=== PATIENT | female | born 1960 | race Caucasian/White ===

== ENCOUNTER → 2019-05-14 14:32 | Outpatient (CLI) | payer BC, SELFPAY ==
--- NOTE | 2019-05-14 14:36 | DI.RAD.S_ITS ---
PROCEDURE: XR HAND LT MIN 3V INDICATIONS: left 1st and 2nd finger pain TECHNIQUE: 3 views of the hand(s) acquired. COMPARISON: None. FINDINGS: Bones: No fractures or dislocations. Carpal bones are normally aligned. No suspicious bony lesions. Mild multilevel joint narrowing with periarticular osteophyte formation. No erosive changes. Soft tissues: No suspicious soft tissue calcifications. IMPRESSION: Mild multilevel joint narrowing with periarticular osteophyte formation, most notably and moderate involving the first CMC joint. Dictated by: Baljinder CHERRY Interpreted: Wu Pires MD on 05/14/2019 at 15:00 Approved by: Wu Pires M.D. on 05/14/2019 at 15:41
== END ==
PROVIDERS: PCP Family Medicine; Visit Provider Family Medicine
DX: M79.642 Pain in left hand (principal); M25.742 Osteophyte, left hand
CPT/HCPCS: 73130

== ENCOUNTER → 2019-08-15 08:35 | Outpatient (CLI) | payer BC, SELFPAY ==
[2019-08-15 09:16] LABS: Creatinine Urine Random 45.6 mg/dL
[2019-08-15 09:20] LABS: Microalbumi Creatinin Ratio Ur 13.1 ug/mg CR (<30); Microalbumin Urine Random 0.6 mg/dL (0-1.6)
[2019-08-15 09:21] LABS: BUN Creatinine Ratio 22.9 (6-22); Blood Urea Nitrogen 16 mg/dL (7-17); Calcium 9.6 mg/dL (8.4-10.2); Carbon Dioxide 27 mmol/L (22-32); Chloride 106 mmol/L (98-107); Cholesterol 243 mg/dL (140-199); Estimated Glomerular Filt Rate > 60.0 mL/min (>60); Glucose 95 mg/dL (80-110); HDL Cholesterol 39 mg/dL (40-60); HEMOLYSIS < 15 (0-50); LDL Cholesterol Calculated 176 mg/dL (<100); Potassium 4.8 mmol/L (3.4-5.1); Sodium 141 mmol/L (137-145); Triglycerides 139 mg/dL (35-150)
== END ==
PROVIDERS: PCP Family Medicine; Visit Provider Family Medicine
DX: R03.0 Elevated blood-pressure reading, without diagnosis of hypertension (principal); Z13.220 Encounter for screening for lipoid disorders
CPT/HCPCS: 36415; 80048; 80061; 82043; 82570

== ENCOUNTER → 2019-08-28 09:22 | Outpatient (CLI) | payer BC, SELFPAY ==
[2019-08-28 09:56] LABS: Influenza A - CEPHEID Flu A POSITIVE (NEGATIVE); Influenza B - CEPHEID Flu B NEGATIVE (NEGATIVE)
== END ==
PROVIDERS: PCP Family Medicine; Visit Provider Nurse Practitioner
DX: R68.89 Other general symptoms and signs (principal)
CPT/HCPCS: 87502

== ENCOUNTER → 2021-04-14 08:58 | Outpatient (CLI) | payer BC, SELFPAY ==
[2021-04-14 09:49] LABS: Add Manual Diff / Slide Review NO; Basophils Absolute Auto 0 /uL (0-100); Basophils Percent Auto 0.5 % (0-2); Eosinophils Absolute Auto 200 /uL (0-450); Eosinophils Percent Auto 2.6 % (2-4); Hematocrit 42.7 % (36-46); Hemoglobin 14.3 g/dL (12.0-16.0); Lymphocytes Absolute Auto 1600 /uL (1100-4500); Mean Corpuscular HGB Conc 33.6 % (30-36); Mean Corpuscular Hemoglobin 30.1 PG (26-34); Mean Corpuscular Volume 89.8 fL (80-100); Monocytes Absolute Auto 500 /uL (0-900); Monocytes Percent Auto 8.2 % (3-14); Neutrophils Absolute Auto 3900 /uL (1500-7000); Neutrophils Percent Auto 62.7 % (50-75); Platelet Count 289 X10^3/uL (150-400); Red Blood Cell Count 4.75 X10^6/uL (4.0-5.2); Red Cell Distribution Width 13.1 % (11.6-14.8); White Blood Cell Count 6.2 X10^3/uL (4.5-11.0)
[2021-04-14 10:04] LABS: Alanine Aminotransferase 45 IU/L (<35); Albumin 4.3 g/dL (3.5-5.0); Albumin Globulin Ratio 1.5 (1.0-2.8); Alkaline Phosphatase 86 U/L (38-126); Aspartate Aminotransferase 30 IU/L (14-36); BUN Creatinine Ratio 26.9 (6-22); Bilirubin Total 0.5 mg/dL (0.2-1.3); Blood Urea Nitrogen 18 mg/dL (7-17); Calcium 9.2 mg/dL (8.4-10.2); Carbon Dioxide 27 mmol/L (22-32); Chloride 109 mmol/L (98-107); Cholesterol 231 mg/dL (140-199); Estimated Glomerular Filt Rate > 60.0 mL/min (>60); Globulin 2.9 g/dL (1.7-4.1); Glucose 107 mg/dL (80-110); HDL Cholesterol 42 mg/dL (40-60); HEMOLYSIS < 15 (0-50); LDL Cholesterol Calculated 166 mg/dL (<100); Potassium 4.3 mmol/L (3.4-5.1); Sodium 142 mmol/L (137-145); Total Protein 7.2 g/dL (6.3-8.2); Triglycerides 115 mg/dL (35-150)
[2021-04-14 10:23] LABS: Creatinine Urine Random 111.7 mg/dL
[2021-04-14 10:26] LABS: Microalbumin Urine Random 2.8 mg/dL (0-1.6)
== END ==
PROVIDERS: PCP Family Medicine; Referring Provider Family Medicine; Visit Provider Family Medicine
DX: Z13.0 Encounter for screening for diseases of the blood and blood-forming organs and certain disorders involving the immune mechanism (principal); Z13.1 Encounter for screening for diabetes mellitus; Z13.220 Encounter for screening for lipoid disorders
CPT/HCPCS: 36415; 80053; 80061; 82043; 82570; 84443; 85025

== ENCOUNTER → 2022-05-11 08:23 | Outpatient (CLI) | payer BC, SELFPAY ==
[2022-05-11 08:49] LABS: Add Manual Diff / Slide Review NO; Basophils Absolute Auto 100 /uL (0-100); Basophils Percent Auto 1.2 % (0-2); Eosinophils Absolute Auto 200 /uL (0-450); Eosinophils Percent Auto 2.9 % (2-4); Hematocrit 41.9 % (36-46); Hemoglobin 14.2 g/dL (12.0-16.0); Lymphocytes Absolute Auto 2200 /uL (1100-4500); Lymphocytes Percent Auto 37.6 % (25-40); Mean Corpuscular HGB Conc 33.8 % (30-36); Mean Corpuscular Hemoglobin 30.2 PG (26-34); Mean Corpuscular Volume 89.4 fL (80-100); Monocytes Absolute Auto 500 /uL (0-900); Monocytes Percent Auto 9.1 % (3-14); Neutrophils Absolute Auto 2900 /uL (1500-7000); Neutrophils Percent Auto 49.2 % (50-75); Platelet Count 277 X10^3/uL (150-400); Red Blood Cell Count 4.69 X10^6/uL (4.0-5.2); Red Cell Distribution Width 13.3 % (11.6-14.8); White Blood Cell Count 5.9 X10^3/uL (4.5-11.0)
[2022-05-11 09:08] LABS: Alanine Aminotransferase 47 IU/L (<35); Albumin 4.1 g/dL (3.5-5.0); Albumin Globulin Ratio 1.5 (1.0-2.8); Alkaline Phosphatase 100 U/L (38-126); Aspartate Aminotransferase 26 IU/L (14-36); Bilirubin Total 0.4 mg/dL (0.2-1.3); Blood Urea Nitrogen 16 mg/dL (7-17); Calcium 8.8 mg/dL (8.4-10.2); Carbon Dioxide 24 mmol/L (22-32); Chloride 108 mmol/L (98-107); Cholesterol 237 mg/dL (140-199); Estimated Glomerular Filt Rate > 60 mL/min (>60); Globulin 2.8 g/dL (1.7-4.1); Glucose 94 mg/dL (80-110); HDL Cholesterol 38 mg/dL (40-60); HEMOLYSIS < 15 (0-50); LDL Cholesterol Calculated 167 mg/dL (<100); Potassium 4.1 mmol/L (3.4-5.1); Sodium 140 mmol/L (137-145); Total Protein 6.9 g/dL (6.3-8.2); Triglycerides 161 mg/dL (35-150)
[2022-05-11 09:37] LABS: TSH w/ Reflex to FT4 0.96 uIU/mL (0.47-4.68)
== END ==
PROVIDERS: PCP Family Medicine; Referring Provider Family Medicine; Visit Provider Family Medicine
DX: R07.9 Chest pain, unspecified (principal)
CPT/HCPCS: 36415; 80053; 80061; 84443; 85025

== ENCOUNTER → 2022-07-06 08:44 | Outpatient (CLI) | payer BC, SELFPAY ==
[2022-07-06 10:08] LABS: COVID19 -Nasal RAPID Negative (Negative)
--- NOTE | 2022-07-07 19:33 | DI.NM.S_ITS ---
DATE OF SERVICE: 07/06/2022 PROCEDURE PERFORMED: Exercise treadmill stress and rest myocardial perfusion imaging with gating to assess ejection fraction and regional wall motion. ORDERING PROVIDER: Dr. Renetta Banerjee. INDICATIONS: The patient is a 61-year-old female with intermittent atypical chest discomfort. CARDIAC STRESS: The patient was able to exercise for 5 minutes, 59 seconds on a standard Dominic protocol, suggesting mildly impaired exercise capacity with anFAI of +7%. She had a normal heart rate response to exercise, achieving a maximum heart rate of 158 BPM (101% of her predicted maximum). She had a moderate hypertensive blood pressure response to exercise with a resting blood pressure of 150/88, increasing to a maximum of 212/85. She had no chest discomfort or other anginal symptoms. Her resting ECG appears normal with normal sinus rhythm. She developed subtle, upsloping ST depression that is nonspecific and essentially resolves in early recovery. She had rare PVCs, rarely in couplets, but no other complex ventricular ectopy. At 4 minutes, 5 seconds of exercise at a heart rate of 144 BPM, 25.9 millicuries of technetium-99m Myoview was injected and she was imaged 20 minutes later using a gated SPECT acquisition protocol. Earlier in the day while at rest, she was injected with 10.5 millicuries of technetium-99m Myoview and imaged 15 minutes later, again using a gated SPECT acquisition protocol. FINDINGS: 1. Raw data: There is fair myocardial tracer uptake with slight breast shadows and evidence for diaphragmatic attenuation. The lung/heart ratio is normal at 0.23 with a normal TID ratio of 0.97. 2. Quantitated gated SPECT: Post-stress ejection fraction is estimated at 79% without any focal wall motion abnormality and specifically the inferior wall has brisk contractility. The resting ejection fraction is 77% with a normal resting end-diastolic volume of 64 mL. 3. Myocardial perfusion imaging: Post-stress supine images shows a fairly normal myocardial perfusion pattern except a subtle defect in the inferior wall consistent with diaphragmatic attenuation although this defect persists to a slight degree on the prone images, suggesting that it could represent a true perfusion defect. There are no other perfusion defects. The resting images show an identical perfusion pattern without any improvement in the inferior defect. IMPRESSION: 1. Probable normal myocardial perfusion study. 2. Subtle, fixed inferior perfusion defect that most likely reflects a diaphragmatic attenuation artifact, although persists to a slight degree on the prone images, raising a question whether it could represent a previous mild nontransmural infarction, yet the absence of any wall motion abnormality in this distribution, mitigates against an infarct. There is no evidence for any myocardial ischemia. 3. Normal left ventricular systolic function without any focal wall motion abnormality. 4. Mildly reduced exercise capacity without angina and only subtle, nonspecific ST abnormalities. She had a significant hypertensive blood pressure response to exercise. 5. Compared with the previous perfusion study of 08/29/2007, the previous study showed no inferior defect. The previous ejection fraction was 70% and her exercise capacity was similar, suggesting the absence of any significant change. Jo Phillips - GIANNA/bravo/aman doc#: [id number]/job#: [id number] dd: 07/07/2022 07:45:00 dt: 07/07/2022 19:23:00 DICTATING /COPIES TO: Ronald Saab MD COPIES MNE: FREDA;
== END ==
PROVIDERS: PCP Family Medicine; Referring Provider Family Medicine; Visit Provider Family Medicine
DX: R07.89 Other chest pain (principal); Z20.822 Contact with and (suspected) exposure to COVID-19
CPT/HCPCS: 78452; 87635; 93017; A9502

== ENCOUNTER → 2022-11-21 09:01 | Outpatient (CLI) | payer BC, SELFPAY ==
[2022-11-21 11:26] LABS: Cholesterol 224 mg/dL (140-199); Glucose 103 mg/dL (80-110); HDL Cholesterol 38 mg/dL (40-60); LDL Cholesterol Calculated 161 mg/dL (<100); Triglycerides 125 mg/dL (35-150)
[2022-11-21 11:33] LABS: Vitamin D 25 Hydroxy (D3) 34.6 ng/mL (30.0-100.0)
== END ==
PROVIDERS: PCP Family Medicine; Referring Provider Family Medicine; Visit Provider Family Medicine
DX: F33.41 Major depressive disorder, recurrent, in partial remission (principal); F41.9 Anxiety disorder, unspecified; E78.5 Hyperlipidemia, unspecified; E55.9 Vitamin D deficiency, unspecified
CPT/HCPCS: 36415; 80061; 82306; 82947

== ENCOUNTER → 2022-11-24 16:33 | Outpatient (CLI) | payer BC, SELFPAY ==
--- NOTE | 2022-11-24 16:35 | DI.RAD.S_ITS ---
PROCEDURE: XR LUMBAR SPINE 2-3V INDICATIONS: Low back pain TECHNIQUE: 3 views of the lumbar spine were acquired. COMPARISON: [facility], , L-SPINE 2-3 VIEWS, 02/15/2011, 12:24. FINDINGS: Bones: 5 [id number] vertebrae are present. Mild levoscoliosis centered at the L3 level. 2 mm spondylolisthesis L4-L5. 2 mm retrolisthesis L5-S1 Endplate osteophytes indicate very mild early multilevel disc degeneration. Mild facet joint arthropathy at the L4-L5 and L5-S1 levels. No vertebral body compression fractures. No suspicious bony lesions. Soft tissues: Overlying bowel gas pattern is normal. No suspicious soft tissue calcifications. IMPRESSION: Mild multilevel lumbar spine spondylosis similar prior examination . Dictated by: Baljinder CHERRY Interpreted: Zora Thakur MD on 11/24/2022 at 16:43 Approved by: Zora Thakur M.D. on 11/24/2022 at 17:46
== END ==
PROVIDERS: PCP Family Medicine; Referring Provider Family Medicine; Visit Provider Family Medicine
DX: M47.816 Spondylosis without myelopathy or radiculopathy, lumbar region (principal); M47.817 Spondylosis without myelopathy or radiculopathy, lumbosacral region; M54.50 Low back pain, unspecified
CPT/HCPCS: 72100

== ENCOUNTER → 2023-05-29 14:48 | Outpatient (CLI) | payer BC, SELFPAY ==
--- NOTE | 2023-05-29 14:49 | DI.MRI.S_ITS ---
PROCEDURE: MR HEAD/BRAIN WO CON INDICATIONS: tremor TECHNIQUE: Noncontrast axial T1 spin echo, axial T2 fast spin echo, sagittal and axial FLAIR, coronal T2 fast spin echo, axial gradient echo, axial diffusion and ADC through the brain. COMPARISON: None. FINDINGS: Image quality: Excellent. CSF Spaces: Basal cisterns are patent. No extra-axial fluid collections. Ventricles are normal in size and shape. Brain: No intracranial masses or hemorrhage. Martines/white matter interface is normal. Brainstem appears normal. Mild age-related global volume loss. No significant chronic microvascular ischemic changes. Diffusion-weighted images demonstrate no acute ischemic insult. No chronic ischemic insults. Normal intravascular flow voids are present. Skull and face: Calvarium has normal marrow signal. Orbits appear normal. Sinuses: Sinuses and mastoids are clear. IMPRESSION: 1. No cause for patient's symptoms is identified. 2. No acute intracranial abnormalities. Dictated by: Norm Lee M.D. on 05/29/2023 at 16:56 Approved by: Norm Lee M.D. on 05/29/2023 at 16:58
== END ==
PROVIDERS: PCP Family Medicine; Referring Provider Family Medicine; Visit Provider Family Medicine
DX: R25.1 Tremor, unspecified (principal)
CPT/HCPCS: 70551

== ENCOUNTER → 2024-01-09 07:18 | Outpatient (CLI) | payer BC, SELFPAY ==
[2024-01-09 08:36] LABS: Hemoglobin A1C% w Est Avg Glu 5.6 % (4.0-6.0)
[2024-01-09 08:46] LABS: Alanine Aminotransferase 45 IU/L (<35); Albumin 4.4 g/dL (3.5-5.0); Albumin Globulin Ratio 1.6 (1.0-2.8); Alkaline Phosphatase 88 U/L (38-126); Aspartate Aminotransferase 28 IU/L (14-36); BUN Creatinine Ratio 18.3 (6-22); Bilirubin Total 0.6 mg/dL (0.2-1.3); Blood Urea Nitrogen 13 mg/dL (7-17); Calcium 9.2 mg/dL (8.4-10.2); Carbon Dioxide 26 mmol/L (22-32); Chloride 110 mmol/L (98-107); Cholesterol 258 mg/dL (140-199); Estimated Glomerular Filt Rate > 60 mL/min (>60); Globulin 2.8 g/dL (1.7-4.1); Glucose 104 mg/dL (80-110); HDL Cholesterol 46 mg/dL (40-60); HEMOLYSIS < 15 (0-50); LDL Cholesterol Calculated 183 mg/dL (<100); Potassium 4.4 mmol/L (3.4-5.1); Sodium 141 mmol/L (137-145); Total Protein 7.2 g/dL (6.3-8.2); Triglycerides 145 mg/dL (35-150)
[2024-01-09 08:47] LABS: Microalbumin Urine Random 5.6 mg/dL (0-1.6)
== END ==
PROVIDERS: PCP Family Medicine; Referring Provider Family Medicine; Visit Provider Family Medicine
DX: R73.9 Hyperglycemia, unspecified (principal); I10 Essential (primary) hypertension
CPT/HCPCS: 36415; 80053; 80061; 82043; 82570; 83036

== ENCOUNTER → 2024-07-08 09:29 | Outpatient (CLI) | payer BC, SELFPAY ==
--- NOTE | 2024-07-08 09:33 | DI.RAD.S_ITS ---
PROCEDURE: XR CHEST 2V INDICATIONS: SOB TECHNIQUE: 2 views of the chest were acquired. COMPARISON: None. FINDINGS: Surgical changes and devices: None. Lungs and pleura: Mild peribronchial thickening. No dense airspace disease or pleural effusions Mediastinum: Normal heart size Bones and chest wall: Degenerative changes IMPRESSION: Mild peribronchial thickening may represent viral infection. No airspace consolidation or pleural effusions. Dictated by: Josh Payne M.D. on 07/08/2024 at 14:41 Approved by: Josh Payne M.D. on 07/08/2024 at 14:42
== END ==
PROVIDERS: PCP Family Medicine; Referring Provider Family Medicine; Visit Provider Family Medicine
DX: R06.02 Shortness of breath (principal)
CPT/HCPCS: 71046

== ENCOUNTER 2024-12-26 15:56 | Emergency (ER) | payer OTHER, SELFPAY ==
[2024-12-26 16:09] VITALS: BP 187/87; PULSE 69; RESP 16; TEMP 36.9; O2SAT 100; BMI 29.1
--- NOTE | 2024-12-26 17:54 | DI.RAD.S_ITS ---
PROCEDURE: XR CHEST 1V INDICATIONS: Chest Pain TECHNIQUE: One view of the chest was acquired. COMPARISON: None. FINDINGS: Surgical changes and devices: Surgical clips project over the axillary regions. Lungs and pleura: Lungs are clear. No pleural effusions or pneumothorax. Mediastinum: Mediastinal contours appear normal. Heart size is normal. Bones and chest wall: No suspicious bony lesions. Overlying soft tissues appear unremarkable. IMPRESSION: No acute cardiopulmonary abnormality is seen. Approved by: Steven Ya M.D. on 12/26/2024 at 18:16
--- NOTE | 2024-12-26 17:58 | EKG_ITS ---
[address] [address] Test Date: 2024-12-26 Pat Name: Jo Phillips Department: Room: Gender: Female [employer] Operator: : 1960 Requested By: Order Number: [id number] Reading MD: Adonis Miner Measurements Intervals [place] Rate: 62 P: 15 ME: 202 QRS: -2 QRSD: 86 T: 15 QT: 410 QTc: 416 Interpretive Statements Normal sinus rhythm Cannot rule out Inferior infarct , age undetermined Electronically Signed On 12-27-2024 8:43:08 PDT by Adonis Miner
--- NOTE | 2024-12-26 18:10 | ED_ITS ---
HPI - General Adult General Chief complaint: Dizziness Stated complaint: dizzyness,n/v,sob Time Seen by Provider: 12/26/24 18:05 Source: patient Mode of arrival: Ambulatory History of Present Illness HPI narrative: 64-year-old female right-handed, no prior stroke, complains of lightheadedness onset yesterday 7:00 a.m., was able to assist children getting to school, had intercourse where there has been, after intercourse she had no headache but she felt very fatigued, increased in dizziness, some spinning sensation. No headache at that time. Symptoms persisted through the day, slept overnight, this morning still seemed to be persisting, dizziness with head movements and body movements, spinning like sensation. No visual changes. No trouble swallowing. Generalized fatigue, also a sensation of left face ?falling asleep? but not using the sensation of tingling or numbness. Some decreased strength to her left arm and left leg since this morning. Denies fevers or chills. Denies injury or trauma or new activities. Since this afternoon having right-sided headache, occasionally gets headache, feels similar. Has neck pain. Photophobia. No shaking seizure activity. No incontinence of urine. No altered gait. Related Data Previous Rx's ?Medication ?Instructions ?Recorded cholecalciferol (vitamin D3) 1,250 50,000 unit PO SEE INSTRUCTIONS 10/03/16 mcg (50,000 unit) capsule #20 caps bupropion HCl 300 mg 24 hr tablet, 300 mg PO QAM #90 t abs 01/01/24 extended release estradiol 2 mg (7.5 mcg/24 hour) 1 vag ring vaginal Q9 0D #1 ea 01/01/24 vaginal ring (Estring) propranolol 80 mg capsule,24 80 mg PO DAILY #90 caps 0 01/01/24 hr,extended release methocarbamol 500 mg tablet 500 mg PO ONCE PM PRN for muscle 01/17/24 spasm #14 tabs zolpidem 10 mg tablet (Ambien) 10 mg PO HSP #30 tabs 0 09/03/24 sumatriptan succinate 100 mg tablet 100 mg PO ONCE #9 tabs 10/13/24 tirzepatide 5 mg/0.5 mL 5 mg (0.5 mL) SUBCUT QWEEK # 2 mL 11/27/24 subcutaneous pen injector atorvastatin 10 mg tablet 10 mg PO BEDTIME #90 tabs meclizine 50 mg tablet 50 mg PO TID PRN dizziness o r 12/26/24 vertigo #20 tabs Allergies Allergy/AdvReac Type Severity Reaction Status Date / Time Penicillins (PENICILLINS) Allergy Severe ANAPHYLAXIS Verified 10/08/24 08:55 semaglutide AdvReac Mild GI UPSET Verified 10/20/24 06:39 Patient History Medical History (Updated 12/26/24 @ 20:51 by Erick Sharp MD) Depression Anxiety Breast cancer Surgical History History of bilateral mastectomy Social History marital status: number of children: 3 household members: family lives independently: Yes caregiver/support person: No housing: house education level: college occupational status: employed Smoking Status: Never smoker second hand exposure: No alcohol intake: current substance use type: does not use Smoking Status: Never smoker Exam Narrative Exam Narrative: GENERAL: [Well-developed patient, in mild distress. HEAD: Atraumatic. Normocephalic. EYES: Pupils equal round and reactive. Extraocular motions intact. No scleral icterus. No injection or drainage. ENT: Nose without bleeding, purulent drainage. Throat without erythema, tonsillar hypertrophy or exudate. Airway patent. NECK: Trachea midline. Non tender CARDIOVASCULAR: Regular rate and rhythm without murmurs, gallops, or rubs. RESPIRATORY: Clear to auscultation. Breath sounds equal bilaterally. No wheezes, rales, or rhonchi. GASTROINTESTINAL: Abdomen soft, non-tender, nondistended. EXTREMITIES: No edema or joint tenderness. BACK: Nontender without deformity or crepitance. No flank tenderness. NEURO: AOx3. Clear speech, cooperative. Cranial nerves normal as tested. Motor 5/5 bilateral upper extremities, 5/5 bilateral lower extremities. She has subjective weakness to left arm and left leg raise though did not seem to demonstrate pronator drift. [id number]-pm-[id number] somewhat more difficult left side she attributed to left arm weakness. SKIN: No rash or erythema of visible areas Initial Vital Signs Initial Vital Signs: Vital Signs Temperature 98.5 F 12/26/24 16:09 Pulse Rate 69 12/26/24 16:09 Respiratory Rate 16 12/26/24 16:09 Blood Pressure 187/87 H 12/26/24 16:09 Pulse Oximetry 100 12/26/24 16:09 Oxygen Delivery Method Room Air 12/26/24 16:09 Course Orders Ordered: ED Orders 12/26/24 17:54 XR chest 1V Stat EKG-12 Lead Stat 12/26/24 18:18 CRP [C-Reactive Protein Quant] Stat Complete Blood Count AUTO DIFF Stat Comprehensive Metabolic Panel Stat ESR [Erythrocyte Sedimentation Rate] Stat Lipase Stat Magnesium Stat NT-proBNP (BNP-Adult 18+) Stat PTT Partial Thromboplastin [place] Stat Prothrombin Time INR Stat Troponin & CK Cardiac Panel Stat 12/26/24 18:21 CT head/brain wo con Stat 12/26/24 18:22 CT angio head and neck Stat Discontinued Medications Aspirin (Aspirin 81 Mg Chew Tab) 324 mg PO NOW ONE Stop: 12/26/24 17:54 Last Admin: 12/26/24 19:18 Dose: 324 mg Documented By: ISH Aspirin (Aspirin 81 Mg Chew Tab) 324 mg PO NOW ONE Stop: 12/26/24 20:49 Diphenhydramine HCl (Diphenhydramine 50 Mg/Ml Vial) 50 mg IV NOW ONE Stop: 12/26/24 18:23 Last Admin: 12/26/24 19:18 Dose: 50 mg Documented By: ISH Sodium Chloride (Normal Saline 0.9%) 1,000 mls @ 1,000 mls/hr IV BOLUS ONE Stop: 12/26/24 19:21 Last Infusion: 12/26/24 20:30 Dose: Infused Documented By: Admin: 12/26/24 19:19 Dose: 1,000 mls/hr Documented By: ISH Meclizine HCl (Meclizine Hcl 12.5 Mg Tablet) 50 mg PO NOW ONE Stop: 12/26/24 20:21 Last Admin: 12/26/24 20:35 Dose: 50 mg Documented By: ISH Prochlorperazine (Prochlorperazine 10 Mg/2 Ml Vial) 10 mg IV NOW ONE Stop: 12/26/24 18:23 Last Admin: 12/26/24 19:18 Dose: 10 mg Documented By: ISH Vital Signs Vital signs: Vital Signs - 8 hr 12/26/24 19:30 12/26/24 20:00 12/26/24 21:06 Pulse Rate 71 72 64 Respiratory Rate 16 23 15 Blood Pressure 168/81 H 159/79 H 173/82 H Pulse Oximetry 96 98 98 Oxygen Delivery Method Room Air Room Air Room Air Medical Decision Making Lab Data Lab results reviewed: Yes I reviewed the patient's lab results. Lab results narrative: White blood cell count 7300, hemoglobin 16.0, platelets adequate. Glucose 95. Normal renal function. Normal electrolytes. Mild transaminitis otherwise liver functions normal. Lipase normal. Troponin negative. CRP negative. ESR normal. BNP 74 normal. 12/26/24 18:18 12/26/24 18:18 Labs: Lab Results 12/26/24 Range/Units 18:18 WBC 7.3 (4.5-11.0) X10^3/uL RBC 5.25 H (4.0-5.2) X10^6/uL Hgb 16.0 (12.0-16.0) g/dL Hct 47.3 H (36-46) % MCV 90.1 (80-100) fL MCH 30.4 (26-34) PG MCHC 33.8 (30-36) % RDW 13.1 (11.6-14.8) % Plt Count 287 (150-400) X10^3/uL Neut % (Auto) 57.7 (50-75) % Lymph % (Auto) 29.0 (25-40) % [place] % (Auto) 9.5 (3-14) % Eos % (Auto) 2.9 (2-4) % Baso % (Auto) 0.9 (0-2) % Neut # (Auto) 4200 (2098-4529) /uL Lymph # (Auto) 2100 (7387-5456) /uL [place] # (Auto) 700 (0-900) /uL Eos # (Auto) 200 (0-450) /uL Baso # (Auto) 100 (0-100) /uL ESR 13 (0-20) MM/HR PT 11.0 (9.4-12.5) SECONDS INR 1.0 (0.9-1.3) APTT 35 (25.1-36.5) SECONDS Sodium 143 (137-145) mmol/L Potassium 4.0 (3.4-5.1) mmol/L Chloride 107 (98-107) mmol/L Carbon Dioxide 26 (22-32) mmol/L BUN 10 (7-17) mg/dL Creatinine 0.87 (0.52-1.04) mg/dL Estimated GFR > 60 (>60) mL/min BUN/Creatinine Ratio 11.5 (6-22) Glucose 95 (70-99) mg/dL Calcium 9.8 (8.4-10.2) mg/dL Magnesium 2.3 (1.6-2.3) mg/dL Total Bilirubin 0.9 (0.2-1.3) mg/dL AST 40 H (14-36) IU/L ALT 64 H (<35) IU/L Alkaline Phosphatase 109 (38-126) U/L Total Creatine Kinase 70 (30-135) U/L Troponin I < 0.012 (0.01-0.034) ng/mL C-Reactive Protein < 0.5 (<1.0) mg/dL NT-Pro-B Natriuret Pep 74 (<125) pg/mL Total Protein 8.7 H (6.3-8.2) g/dL Albumin 5.0 (3.5-5.0) g/dL Globulin 3.7 (1.7-4.1) g/dL Albumin/Globulin Ratio 1.4 (1.0-2.8) Lipase 147 (23-300) U/L Imaging Data Chest x-ray: Radiologist's Impression: Close Head/Neck CTA (Signed) Steven Ya - 12/26/[address] (Signed) Steven Ya - 12/26/24 Chest X-Ray (Signed) Steven Ya - 12/26/[address] [address] XRay Report Signed Patient: Jo Phillips MR#: [id number] : 1960 Acct:[id number] Age/Sex: 64 / F Date of Service: 12/26/24 Loc: ED Accession Number: [id number] Procedure: XR chest 1V Ordering Provider: Gee Escobar D.O. PROCEDURE: XR CHEST 1V INDICATIONS: Chest Pain TECHNIQUE: One view of the chest was acquired. COMPARISON: None. FINDINGS: Surgical changes and devices: Surgical clips project over the axillary regions. Lungs and pleura: Lungs are clear. No pleural effusions or pneumothorax. Mediastinum: Mediastinal contours appear normal. Heart size is normal. Bones and chest wall: No suspicious bony lesions. Overlying soft tissues appear unremarkable. IMPRESSION: No acute cardiopulmonary abnormality is seen. Approved by: Steven Ya M.D. on 12/26/2024 at 18:16 CT scan - head: Radiologist's Impression: Close Head/Neck CTA (Signed) Steven Ya - 12/26/[address] (Signed) Steven Ya - 12/26/24 Chest X-Ray (Signed) Steven Ya - 12/26/24 Launch?[address] [address] [address] Scan Report Signed Patient: Jo Phillips MR#: [id number] : 1960 Acct:[id number] Age/Sex: 64 / F Date of Service: 12/26/24 Loc: ED Accession Number: [id number] Procedure: CT head/brain wo con Ordering Provider: Erick Sharp MD PROCEDURE: CT HEAD/BRAIN WO CON INDICATIONS: dizziness TECHNIQUE: Noncontrast 4.5 mm thick angled axial sections acquired from the foramen magnum to the vertex, with coronal and axial reformats. For radiation dose reduction, the following was used: automated exposure control, adjustment of mA and/or kV according to patient size. COMPARISON: None. FINDINGS: Image quality: Diagnostic. CSF spaces: Basal cisterns are patent. No extra-axial fluid collections. The ventricles are symmetric in size and shape. Brain: No intracranial bleeds or mass effect. There is cerebral volume loss, with resultant ventricular and sulcal prominence. There are periventricular and deep white matter chronic small vessel ischemic changes. There is intracranial internal carotid artery atherosclerosis. Skull and face: Calvarium and visualized facial bones appear intact, without suspicious lesions. Sinuses: Visualized sinuses and mastoids are clear. IMPRESSION: No acute intracranial pathology. Approved by: Steven Ya M.D. on 12/26/2024 at 19:26 CTA - brain/neck: Radiologist's Impression: Close Head/Neck CTA (Signed) Steven Ya - 12/26/[address] (Signed) Steven Ya - 12/26/24 Chest X-Ray (Signed) Steven Ya - 12/26/24 Launch?[address] [address] [address] Scan Report Signed Patient: Jo Phillips MR#: [id number] : 1960 Acct:[id number] Age/Sex: 64 / F Date of Service: 12/26/24 Loc: ED Accession Number: [id number] Procedure: CT head/brain wo con Ordering Provider: Erick Sharp MD PROCEDURE: CT HEAD/BRAIN WO CON INDICATIONS: dizziness TECHNIQUE: Noncontrast 4.5 mm thick angled axial sections acquired from the foramen magnum to the vertex, with coronal and axial reformats. For radiation dose reduction, the following was used: automated exposure control, adjustment of mA and/or kV according to patient size. COMPARISON: None. FINDINGS: Image quality: Diagnostic. CSF spaces: Basal cisterns are patent. No extra-axial fluid collections. The ventricles are symmetric in size and shape. Brain: No intracranial bleeds or mass effect. There is cerebral volume loss, with resultant ventricular and sulcal prominence. There are periventricular and deep white matter chronic small vessel ischemic changes. There is intracranial internal carotid artery atherosclerosis. Skull and face: Calvarium and visualized facial bones appear intact, without suspicious lesions. Sinuses: Visualized sinuses and mastoids are clear. IMPRESSION: No acute intracranial pathology. Approved by: Steven Ya M.D. on 12/26/2024 at 19:26 ECG Data Attestation: I personally reviewed and interpreted this ECG as follows: Interpretation: Normal sinus rhythm with rate of 62, no obvious ST segment elevation or depression changes. GA 202, QRS 86, QTC 416. [facility] Narrative Medical decision making narrative: 64-year-old female with dizziness since yesterday, worse with left-sided headache, some ?falling asleep? sensation to left cheek, some subjective weakness to left arm or left leg. No neuro deficits obvious on examination however. Dizziness symptoms reproduced with truncal and head movements. CT head, CTA head and neck vessels ordered. CT head, no acute changes. See radiology report. CT angiogram head and neck vessels, no thrombosis or significant narrowing. See radiology report. Screening labs: White blood cell count 7300, hemoglobin 16.0, platelets adequate. Glucose 95. Normal renal function. Normal electrolytes. Mild transaminitis otherwise liver functions normal. Lipase normal. Troponin negative. CRP negative. ESR normal. BNP 74 normal. IV Compazine with Benadryl given, headache resolved, weakness symptoms all resolved, dizziness also seemed to resolve. Consider hemiplegic migraine. Could consider further stroke workup, offered admit for telemetry and MRI of the brain tomorrow, she declined this, wanted to pursue further workup as needed as an outpatient for now. Given oral aspirin load, and suggested use of baby aspirin daily. Follow up with PCP this week. Return precautions discussed. Discharged home with family. Discharge Plan Departure Patient Disposition: Home Clinical Impression: Hemiplegic migraine, Dizziness Activity Restrictions/Additional Instructions: Nausea was spinning sensation since yesterday, left-sided headache with some weakness sensation to the left face left arm and leg, although no demonstrable weakness on physical exam neurological testing. Symptoms were concerning for stroke or other brain abnormality. CT head noncontrast study negative. CT angiogram of the head and neck vessels was also negative, no thrombosis, no narrowing of any vessels identified. For your headache you were given Compazine Benadryl, and had resolution of your headache and also your left-sided weakness symptoms. It is possible you might have had hemiplegic headache, transient weakness in association with headache. It might be prudent however to take aspirin, full dose given tonight, baby aspirin daily. The antihistamine given with the Compazine might have helped some of your dizziness, or perhaps your dizziness went away with resolution of the headache cocktail entirely. Consider use of meclizine for the next few days. No driving or operating machinery while taking meclizine if he might have dizziness and might interfere with these activities and but you or others in risk for injury. Meclizine prescription sent to your pharmacy to use for the next few days if needed. Recheck symptoms with your regular doctor early next week. Return to this/nearest emergency department for any change worsening symptoms or any concerns prior. We did discuss further workup that could be done if you were to stay overnight as admission, such as staying on telemetry to screen for abnormal heart rhythms, and obtain MRI of the brain tomorrow that it is not available at this hour. You declined this for now. Further workup as needed as an outpatient for now. Prescriptions: New meclizine 50 mg tablet 50 mg PO TID PRN (Reason: dizziness or vertigo) Qty: 20 0RF No Action propranolol 80 mg capsule,extended release 24hr 80 mg PO DAILY Qty: 90 3RF Estring 2 mg (7.5 mcg /24 hour) ring 1 vag ring vaginal Q90D Qty: 1 3RF bupropion HCl 300 mg tablet extended release 24 hr 300 mg PO QAM Qty: 90 3RF cholecalciferol (vitamin D3) 50,000 UNIT capsule 50,000 unit PO SEE INSTRUCTIONS Qty: 20 0RF methocarbamol 500 mg tablet 500 mg PO ONCE PM PRN (Reason: for muscle spasm) Qty: 14 0RF zolpidem [Ambien] 10 mg tablet 10 mg PO HSP Qty: 30 5RF sumatriptan succinate 100 mg tablet 100 mg PO ONCE Qty: 9 0RF tirzepatide 5 mg/0.5 mL pen injector 5 mg SUBCUT QWEEK Qty: 2 0RF atorvastatin 10 mg tablet 10 mg PO BEDTIME Qty: 90 0RF Referrals: Renetta Banerjee MD [Primary Care Provider, Family Practice] Stand Alone Forms: Patient Portal/API, Work Release Note
--- NOTE | 2024-12-26 18:21 | DI.CT.S_ITS ---
PROCEDURE: CT HEAD/BRAIN WO CON INDICATIONS: dizziness TECHNIQUE: Noncontrast 4.5 mm thick angled axial sections acquired from the foramen magnum to the vertex, with coronal and axial reformats. For radiation dose reduction, the following was used: automated exposure control, adjustment of mA and/or kV according to patient size. COMPARISON: None. FINDINGS: Image quality: Diagnostic. CSF spaces: Basal cisterns are patent. No extra-axial fluid collections. The ventricles are symmetric in size and shape. Brain: No intracranial bleeds or mass effect. There is cerebral volume loss, with resultant ventricular and sulcal prominence. There are periventricular and deep white matter chronic small vessel ischemic changes. There is intracranial internal carotid artery atherosclerosis. Skull and face: Calvarium and visualized facial bones appear intact, without suspicious lesions. Sinuses: Visualized sinuses and mastoids are clear. IMPRESSION: No acute intracranial pathology. Approved by: Steven Ya M.D. on 12/26/2024 at 19:26
--- NOTE | 2024-12-26 18:22 | DI.CT.S_ITS ---
PROCEDURE: CT ANGIO HEAD AND NECK INDICATIONS: dizziness, face numb, L arm/leg weakness TECHNIQUE: After the administration of intravenous contrast, 1 mm thick sections acquired from the aortic arch through the [place] of [place]. 3-dimensional zdzgwux-cgdqykqzt-njdojjluik (MIP) and/or volume rendering reformats were acquired of the central intracranial vasculature and neck separately. For radiation dose reduction, the following was used: automated exposure control, adjustment of mA and/or kV according to patient size. COMPARISON: [facility], CT, CT HEAD/BRAIN WO [facility], 12/26/2024, 18:55. FINDINGS: Image quality: Diagnostic. Cerebral CT Angiogram: Internal carotid arteries: No acute findings. Intracranial ICA are patent with no significant stenosis. No occlusion. No aneurysm. Anterior cerebral arteries: Unremarkable. No significant stenosis. No occlusion. No aneurysm. Middle cerebral arteries: Unremarkable. No significant stenosis. No occlusion. No aneurysm. Posterior cerebral arteries: Unremarkable. No significant stenosis. No occlusion. No aneurysm. Basilar artery: Unremarkable. No significant stenosis. No occlusion. No aneurysm. Vertebral arteries: Unremarkable as visualized. Dural venous sinuses: Unremarkable given phase of enhancement. Other: Arterial phase appearance of the brain parenchyma is unremarkable. Neck CT Angiogram: Internal carotid arteries: Unremarkable. No significant stenosis. No dissection or occlusion. Common carotid arteries: Unremarkable. No significant stenosis. No dissection or occlusion. External carotid arteries: Unremarkable. No occlusion. Vertebral arteries: Unremarkable. No significant stenosis. No dissection or occlusion. Aortic Arch and Mediastinum: Partially visualized aortic arch unremarkable without evidence of aneurysm. Origins of the great vessels unremarkable. Other: Arterial phase soft tissues of the neck and chest are unremarkable. IMPRESSION: No significant intracranial arterial abnormality is seen. No significant abnormality is seen within the arteries of the neck. Any quantitative measurements of stenosis were performed using NASCET criteria. Approved by: Steven Ya M.D. on 12/26/2024 at 19:33
[2024-12-26 18:27] LABS: Add Manual Diff / Slide Review NO; Basophils Absolute Auto 100 /uL (0-100); Basophils Percent Auto 0.9 % (0-2); Eosinophils Absolute Auto 200 /uL (0-450); Eosinophils Percent Auto 2.9 % (2-4); Hematocrit 47.3 % (36-46); Lymphocytes Absolute Auto 2100 /uL (1100-4500); Mean Corpuscular HGB Conc 33.8 % (30-36); Mean Corpuscular Hemoglobin 30.4 PG (26-34); Mean Corpuscular Volume 90.1 fL (80-100); Monocytes Absolute Auto 700 /uL (0-900); Monocytes Percent Auto 9.5 % (3-14); Neutrophils Absolute Auto 4200 /uL (1500-7000); Neutrophils Percent Auto 57.7 % (50-75); Platelet Count 287 X10^3/uL (150-400); Red Blood Cell Count 5.25 X10^6/uL (4.0-5.2); Red Cell Distribution Width 13.1 % (11.6-14.8); White Blood Cell Count 7.3 X10^3/uL (4.5-11.0)
[2024-12-26 18:38] LABS: PTT Partial Thromboplastin Tim 35 SECONDS (25.1-36.5)
[2024-12-26 18:40] LABS: Alanine Aminotransferase 64 IU/L (<35); Albumin Globulin Ratio 1.4 (1.0-2.8); Alkaline Phosphatase 109 U/L (38-126); Aspartate Aminotransferase 40 IU/L (14-36); BUN Creatinine Ratio 11.5 (6-22); Bilirubin Total 0.9 mg/dL (0.2-1.3); Blood Urea Nitrogen 10 mg/dL (7-17); Calcium 9.8 mg/dL (8.4-10.2); Carbon Dioxide 26 mmol/L (22-32); Chloride 107 mmol/L (98-107); Creatine Kinase 70 U/L (30-135); Estimated Glomerular Filt Rate > 60 mL/min (>60); Globulin 3.7 g/dL (1.7-4.1); Glucose 95 mg/dL (70-99); HEMOLYSIS < 15 (0-50); Lipase 147 U/L (23-300); Magnesium 2.3 mg/dL (1.6-2.3); Sodium 143 mmol/L (137-145); Total Protein 8.7 g/dL (6.3-8.2)
[2024-12-26 18:51] LABS: NT-proBNP (BNP-Adult 18+) 74 pg/mL (<125); Troponin I < 0.012 ng/mL (0.01-0.034)
[2024-12-26] MEDS: diphenhydrAMINE 50 MG/ML VIAL IV (19:18)
[2024-12-26] MEDS: ASPIRIN 81 MG CHEW TAB 324 MG PO (19:18)
[2024-12-26] MEDS: PROCHLORPERAZINE 10 MG/2 ML VIAL IV (19:18)
[2024-12-26] MEDS: SODIUM CHLORIDE 0.9% 1,000 ML 1000 ML IV (19:19)
[2024-12-26 19:30] VITALS: BP 168/81; PULSE 71; RESP 16; O2SAT 96
[2024-12-26 19:30] LABS: C-Reactive Protein Quant < 0.5 mg/dL (<1.0)
[2024-12-26 19:46] LABS: Erythrocyte Sedimentation Rate 13 MM/HR (0-20)
[2024-12-26 20:00] VITALS: BP 159/79; PULSE 72; RESP 23; O2SAT 98
[2024-12-26] MEDS: MECLIZINE HCL 12.5 MG TABLET 50 MG PO (20:35)
[2024-12-26 21:06] VITALS: BP 173/82; PULSE 64; RESP 15; O2SAT 98
== END 2024-12-26 21:07 | disposition home or self-care (01) ==
PROVIDERS: Family Medicine; Emergency Provider Emergency Medicine; PCP Family Medicine
DX: G43.409 Hemiplegic migraine, not intractable, without status migrainosus (principal); R42 Dizziness and giddiness; R07.9 Chest pain, unspecified
CPT/HCPCS: 36415; 70450; 70496; 70498; 71045; 80053; 82550; 83690; 83735; 83880; 84484; 85025; 85610; 85651; 85730; 86140; 93005; 96361; 96374; 96375; 99284; J0780; J1200; Q9967

== ENCOUNTER → 2025-01-06 11:13 | Outpatient (CLI) | payer OTHER, SELFPAY ==
--- NOTE | 2025-01-06 11:14 | DI.MRI.S_ITS ---
PROCEDURE: MR HEAD/BRAIN WO/W CON INDICATIONS: vertigo TECHNIQUE: Noncontrast axial T1 spin echo, axial T2 fast spin echo, sagittal and axial FLAIR, coronal T2 fast spin echo, axial gradient echo, axial diffusion and ADC through the brain. After the administration of contrast, axial and coronal and sagittal 3D VIBE or T1 spin echo with fat saturation through the brain. COMPARISON: None. FINDINGS: Image quality: Excellent. CSF Spaces: Basal cisterns are patent. No extra-axial fluid collections. Ventricles are normal in size and shape. Brain: No midline shift. No intracranial bleeds or masses. No abnormal intracranial enhancement. The brainstem appears normal. Diffusion-weighted images demonstrate no acute infarct. No chronic ischemic insults. Normal intravascular flow voids are present. Skull and face: Calvarial marrow is normal in signal. Orbits appear normal. Sinuses: Sinuses and mastoids appear clear. IMPRESSION: Unremarkable MRI of the brain with and without contrast Approved by: Deion Traore M.D. on 01/06/2025 at 11:46
== END ==
PROVIDERS: PCP Family Medicine; Referring Provider Family Medicine; Visit Provider Family Medicine
DX: R42 Dizziness and giddiness (principal)
CPT/HCPCS: 70553; A9579